=== PATIENT | male | born 1955 | race Caucasian/White ===

== ENCOUNTER 2018-11-26 09:50 | Outpatient (CLI) | payer OTHER ==
[~2018-11-26 09:50] MED LIST: CIPRO750 MG PO; CLONAZEPAM1 MG PO; DOCUSATE SODIU100 MG PO; METHYLPRED4 MG/DOSE- PO; NEURONTIN PO; PERCOCET 5/3251 TAB PO
== END 2018-11-26 10:23 | disposition home or self-care (01) ==
LOC: SONOGRAMA 09:50
DX: E04.1 Nontoxic single thyroid nodule (principal)

== ENCOUNTER 2020-11-25 10:30 | Inpatient (IN) | payer OTHER ==
[~2020-11-25] VITALS: Ht 180.3 cm; Wt 127.0 kg
[2020-11-25] MEDS ORDERED: LANTUS (14:11)
[2020-11-25] MEDS ORDERED: CANDESARTAN-HC1 EAC1 PO (14:12)
[2020-11-25] MEDS ORDERED: ADALAT CC60 MG PO (14:19)
[2020-12-01] MEDS ORDERED: AMOX-CLAV 875-1 EACH PO (09:28)
[2020-12-01] MEDS ORDERED: COLACE100 MG PO (09:28)
[2020-12-01] MEDS ORDERED: NEURONTIN800 MG PO (09:28)
[2020-12-01] MEDS ORDERED: DIAZEPAM5 MG PO (09:28)
[2020-12-01] MEDS ORDERED: PERCOCET 5-3251 EACH PO (09:28)
[2020-12-01] MEDS ORDERED: MEDROLPACK PO (09:28)
== END 2020-12-03 14:44 | disposition home health service (06) | DRG 455 ==
LOC: O/R 12-01 06:47 → PED 12-01 06:47 → SURH 12-01 10:15 → PED 12-01 14:41
PROVIDERS: ADMIT Orthopaedic Surgery Orthopaedic Surgery of the Spine; ATTEND Orthopaedic Surgery Orthopaedic Surgery of the Spine
PROC: 0SG1071 Fusion of 2 or more Lumbar Vertebral Joints with Autologous Tissue Substitute, Posterior Approach, Posterior Column, Open Approach (ICD-10-PCS; 2020-12-01)
PROC: 07DR3ZZ Extraction of Iliac Bone Marrow, Percutaneous Approach (ICD-10-PCS; 2020-12-01)
PROC: 0SG10A0 Fusion of 2 or more Lumbar Vertebral Joints with Interbody Fusion Device, Anterior Approach, Anterior Column, Open Approach (ICD-10-PCS; principal; 2020-12-01 10:15)
DX: M48.062 Spinal stenosis, lumbar region with neurogenic claudication (principal); M51.36 Other intervertebral disc degeneration, lumbar region